=== PATIENT | female | born 1980 | race Caucasian/White ===

== ENCOUNTER 2018-03-31 04:14 | Inpatient (IN) | payer OTHER ==
[2018-03-31] MEDS ORDERED: BISACODYL (EC) 5 MG TAB PO (05:00)
[2018-03-31] MEDS ORDERED: NACL 0.9% 3 ML SYG IV (05:00)
[2018-03-31] MEDS ORDERED: morphine 2 MG INJ IV (05:00)
[2018-03-31] MEDS ORDERED: DOCUSATE SODIUM 100 MG CAP PO ×2 (05:00→09:00)
[2018-03-31] MEDS: SOD CHLORIDE 0.9% 1,000 ML IV ×2 (05:28→15:37)
[2018-03-31 06:06] LABS: ADD MAN DIFF? NO
[2018-03-31 06:14] LABS: BASOPHILS % 0.3 % (0.0-2.0); EOSINOPHILS # 0.1 10^3/ul (0.0-0.5); HEMATOCRIT 34.3 % (37.0-47.0); HEMOGLOBIN 11.5 g/dl (12.0-16.0); LYMPHOCYTES # 1.5 10^3/ul (0.8-2.9); MEAN CORPUSCULAR HEMOGLOBIN 29.6 pg (29.0-33.0); MEAN CORPUSCULAR HGB CONC 33.5 g/dl (32.0-37.0); MEAN CORPUSCULAR VOLUME 88.2 fl (82.0-101.0); MEAN PLATELET VOLUME 9.3 fl (7.4-10.4); MONOCYTE # 0.7 10^3/ul (0.3-0.9); MONOCYTES % 10.9 % (0.0-11.0); NEUTROPHIL # 3.7 10^3/ul (1.6-7.5); NEUTROPHILS % 62.3 % (39.0-77.0); PLATELET COUNT 246 10^3/UL (140-415); RED BLOOD COUNT 3.89 10^6/ul (4.20-5.40); RED CELL DISTRIBUTION WIDTH 12.6 % (11.5-14.5)
[2018-03-31 06:42] LABS: ALANINE AMINOTRANSFERASE 544 IU/L (13-69); ALBUMIN 3.4 g/dl (3.3-4.9); ALBUMIN/GLOBULIN RATIO 1.17; ALKALINE PHOSPHATASE 144 IU/L (42-121); ANION GAP 10 (5-13); ASPARTATE AMINO TRANSFERASE 693 IU/L (15-46); BILIRUBIN,INDIRECT 0.2 mg/dl (0-1.1); BILIRUBIN,TOTAL 0.2 mg/dl (0.2-1.3); BLOOD UREA NITROGEN 5 mg/dl (7-20); CALCIUM 8.5 mg/dl (8.4-10.2); CARBON DIOXIDE 28 mmol/L (21-31); CHLORIDE 105 mmol/L (97-110); CHOLESTEROL 97 mg/dl (100-200); CREATININE 0.55 mg/dl (0.44-1.00); Estimated GFR > 60 mL/min (>60); GLUCOSE 108 mg/dl (70-220); HDL CHOLESTEROL 24 mg/dl (34-82); LDL CHOLESTEROL,CALCULATED 60 mg/dl; MAGNESIUM 1.9 mg/dl (1.7-2.5); POTASSIUM 3.5 mmol/L (3.5-5.1); SODIUM 143 mmol/L (135-144); TOTAL PROTEIN 6.3 g/dl (6.1-8.1); TRIGLYCERIDES 64 mg/dl (0-149)
[2018-03-31 06:52] LABS: ETHANOL < 10.0 mg/dl (0-0)
[2018-03-31 07:05] LABS: AMYLASE 48 U/L (11-123)
[2018-03-31 07:05] LABS: LIPASE 282 U/L (23-300)
[2018-03-31] MEDS ORDERED: POLYETHYLENE GLYCOL 17 GM PACKET PO (09:00)
[2018-03-31] MEDS: POLYETHYLENE GLYCOL 17 GM PACKET PO (09:20)
[2018-03-31] MEDS: DOCUSATE SODIUM 100 MG CAP PO ×2 (09:20→20:31)
[2018-03-31] MEDS: morphine 4 MG/ML VIAL IV ×2 (09:41→15:37)
[2018-03-31 09:58] LABS: ADD UMIC YES; UR ASCORBIC ACID NEGATIVE (NEGATIVE); UR BILIRUBIN (Dip) NEGATIVE (NEGATIVE); UR BLOOD (Dip) 1+ mg/dL (NEGATIVE); UR CLARITY SLIGHTLY CLOUDY (CLEAR); UR COLOR YELLOW (YELLOW); UR GLUCOSE (Dip) NEGATIVE (NEGATIVE); UR KETONES (Dip) NEGATIVE (NEGATIVE); UR LEUKOCYTE ESTERASE (Dip) NEGATIVE Leu/ul (NEGATIVE); UR MUCUS FEW /HPF (NONE SEEN); UR NITRITE (Dip) NEGATIVE (NEGATIVE); UR RBC 3 /HPF (0-5); UR SPECIFIC GRAVITY (Dip) 1.014 (1.003-1.030); UR SQUAMOUS EPITHELIAL CELL MODERATE /HPF (FEW); UR TOTAL PROTEIN (Dip) NEGATIVE (NEGATIVE); UR UROBILINOGEN (Dip) 2+ mg/dL (NEGATIVE); UR WBC 4 /HPF (0-5)
[2018-03-31 10:20] LABS: AMPHETAMINE/METHAMPHETAMINE Negative (NEGATIVE); BARBITURATES Negative (NEGATIVE); CANNABINOIDS Negative (NEGATIVE); COCAINE Negative (NEGATIVE)
[2018-03-31 10:24] LABS: OPIATES Positive (NEGATIVE)
[2018-03-31 11:18] LABS: BENZODIAZEPINES Negative (NEGATIVE)
[2018-03-31] MEDS: ACETAMINOPHEN 325 MG TAB PO (13:11)
[2018-04-01] MEDS: SOD CHLORIDE 0.9% 1,000 ML IV ×3 (00:55→17:39)
[2018-04-01] MEDS: DOCUSATE SODIUM 100 MG CAP PO ×2 (09:22→20:31)
[2018-04-01] MEDS: POLYETHYLENE GLYCOL 17 GM PACKET PO (09:22)
[2018-04-01] MEDS: ACETAMINOPHEN 325 MG TAB PO (09:27)
[2018-04-01] MEDS ORDERED: NEOSTIGMINE 3 MG/3 ML SYRINGE (15:19)
[2018-04-01] MEDS ORDERED: ROCURONIUM 50 MG INJ (15:19)
[2018-04-01] MEDS ORDERED: GLYCOPYRROLATE 0.4 MG INJ (15:19)
[2018-04-01] MEDS ORDERED: PROPOFOL 20 ML (15:19)
[2018-04-01] MEDS ORDERED: CEFAZOLIN 1 GM INJ (15:19)
[2018-04-01] MEDS ORDERED: FENTAnyl 50 MCG/ML VIAL (15:21)
[2018-04-01] MEDS ORDERED: ONDANSETRON 4 MG INJ (15:21)
[2018-04-01] MEDS ORDERED: DEXAMETHASONE 4 MG/ML 5 ML INJ (15:21)
[2018-04-01] MEDS ORDERED: MIDAZOLAM 1 MG/ML 2 ML INJ (15:21)
[2018-04-01] MEDS: INDOMETHACIN 50 MG SUPP PR (15:30)
[2018-04-01] MEDS ORDERED: IOHEXOL 300MG/ML 30 ML BTL (15:33)
[2018-04-01] MEDS ORDERED: EPHEDrine SULFATE 50 MG/5 ML SYG IV (16:00)
[2018-04-01] MEDS ORDERED: TRIMETHOBENZAMIDE 100 MG/ML VIAL IM (16:00)
[2018-04-01] MEDS ORDERED: ONDANSETRON 4 MG INJ IV (16:00)
[2018-04-01] MEDS ORDERED: ALBUTEROL 0.083% (NEB) 2.5 MG/3 ML AMP HHN (16:00)
[2018-04-01] MEDS ORDERED: FENTAnyl 50 MCG/ML VIAL IV ×3 (16:00)
[2018-04-01] MEDS ORDERED: OXYCODONE/ACETAMINOPHEN (5/325) TAB PO ×2 (16:00)
[2018-04-01] MEDS ORDERED: HYDROmorphONE 1 MG/5 ML IV SYRINGE IV ×3 (16:00)
[2018-04-01] MEDS ORDERED: LABETALOL HCL 20MG INJ IV (16:00)
[2018-04-01] MEDS ORDERED: IPRATROPIUM (NEB) 0.5 MG/2.5 ML AMP HHN (16:00)
[2018-04-01] MEDS ORDERED: hydrALAzine 20 MG INJ IV (16:00)
[2018-04-01] MEDS ORDERED: MEPERIDINE 25 MG INJ IV (16:00)
[2018-04-01] MEDS ORDERED: DIPHENHYDRAMINE 50 MG INJ IV (16:00)
[2018-04-01] MEDS ORDERED: MIDAZOLAM 1 MG/ML 2 ML INJ IV (16:00)
[2018-04-01] MEDS: ONDANSETRON 4 MG INJ IV (18:24)
[2018-04-02] MEDS: CEPASTAT LOZENGE MT ×2 (00:46→03:52)
[2018-04-02] MEDS: SOD CHLORIDE 0.9% 1,000 ML IV (03:51)
[2018-04-02 05:35] LABS: ADD MAN DIFF? NO
[2018-04-02 05:45] LABS: WHITE BLOOD COUNT 9.2 10^3/ul (4.8-10.8)
[2018-04-02 05:45] LABS: BASOPHILS % 0.1 % (0.0-2.0); HEMATOCRIT 34.1 % (37.0-47.0); HEMOGLOBIN 11.7 g/dl (12.0-16.0); LYMPHOCYTES # 1.1 10^3/ul (0.8-2.9); LYMPHOCYTES % 11.7 % (15.0-51.0); MEAN CORPUSCULAR HEMOGLOBIN 29.5 pg (29.0-33.0); MEAN CORPUSCULAR HGB CONC 34.3 g/dl (32.0-37.0); MEAN CORPUSCULAR VOLUME 86.1 fl (82.0-101.0); MEAN PLATELET VOLUME 9.5 fl (7.4-10.4); MONOCYTE # 0.3 10^3/ul (0.3-0.9); NEUTROPHIL # 7.8 10^3/ul (1.6-7.5); NEUTROPHILS % 84.8 % (39.0-77.0); PLATELET COUNT 287 10^3/UL (140-415); RED BLOOD COUNT 3.96 10^6/ul (4.20-5.40); RED CELL DISTRIBUTION WIDTH 11.9 % (11.5-14.5)
[2018-04-02 06:14] LABS: ALANINE AMINOTRANSFERASE 309 IU/L (13-69); ALBUMIN 3.3 g/dl (3.3-4.9); ALBUMIN/GLOBULIN RATIO 1.17; ALKALINE PHOSPHATASE 164 IU/L (42-121); ANION GAP 11 (5-13); ASPARTATE AMINO TRANSFERASE 108 IU/L (15-46); BILIRUBIN,INDIRECT 0.2 mg/dl (0-1.1); BILIRUBIN,TOTAL 0.2 mg/dl (0.2-1.3); BLOOD UREA NITROGEN 8 mg/dl (7-20); CARBON DIOXIDE 23 mmol/L (21-31); CHLORIDE 105 mmol/L (97-110); CREATININE 0.51 mg/dl (0.44-1.00); Estimated GFR > 60 mL/min (>60); GLUCOSE 115 mg/dl (70-220); SODIUM 139 mmol/L (135-144); TOTAL PROTEIN 6.1 g/dl (6.1-8.1)
[2018-04-02 06:21] LABS: POTASSIUM 3.9 mmol/L (3.5-5.1)
[2018-04-02] MEDS: DOCUSATE SODIUM 100 MG CAP PO (09:38)
[2018-04-02] MEDS: POLYETHYLENE GLYCOL 17 GM PACKET PO (09:38)
[2018-04-02] MEDS: MAGNESIUM CITRATE 300 ML BTL PO (13:38)
== END 2018-04-02 18:20 | disposition home or self-care (01) | DRG 439 ==
LOC: MS1 04:14
PROVIDERS: Family Medicine
PROC: 0FC98ZZ Extirpation of Matter from Common Bile Duct, Via Natural or Artificial Opening Endoscopic (ICD-10-PCS; principal; 2018-04-01 15:30)
DX: K85.10 Biliary acute pancreatitis without necrosis or infection (principal); K80.30 Calculus of bile duct with cholangitis, unspecified, without obstruction; K59.00 Constipation, unspecified; Z90.49 Acquired absence of other specified parts of digestive tract
CPT/HCPCS: 74181; 74330; 80053; 80061; 80307; 81001; 82150; 83036; 83690; 83735; 84443; 84703; 85025